=== PATIENT | male | born 1980 | race African-American/Black ===

== ENCOUNTER 2020-10-17 13:19 | Outpatient (REF) | payer OTHER, SELFPAY ==
--- NOTE | ~2020-10-17 | CT_ITS ---
EXAMINATION: CT HEAD WITHOUT CONTRAST CLINICAL INFORMATION: Headaches. COMPARISON: None TECHNIQUE: Contiguous axial imaging was performed from the skull base to vertex without intravenous administration of contrast. This CT examination was performed using dose optimization techniques as appropriate, variously including the following: *Automated exposure control *Adjustment of mA and/or kV according to patient size (this includes techniques or standardized protocols for targeted exams where dose is matched to indication/reason for exam; i.e. extremities or head) *Use of iterative reconstruction technique DLP: 845 mGy-cm FINDINGS: There is no evidence of acute intracranial hemorrhage or territorial infarction. No abnormal mass effect or midline shift is seen. James to white matter differentiation is well preserved. No extra-axial fluid collections are identified. The ventricles are normal in size. There is no abnormal attenuation within the brain parenchyma. The osseous structures and soft tissues are normal. There is pneumosinus dilatation of the the left sphenoid sinus with extensive pneumatization laterally into the left sphenoid wing. There is also rightward bowing of the sphenoid sinus septation. The mastoid air cells and visualized portions of the paranasal sinuses are well aerated. CT/CT head/brain wo con IMPRESSION: No acute intracranial pathology.
== END 2020-10-17 13:20 | disposition home or self-care (01) ==
LOC: HO.CT 13:19
PROVIDERS: PCP Internal Medicine; Visit Provider Psychiatry & Neurology Neurology
DX: R51.9 Headache, unspecified (principal)
CPT/HCPCS: 70450

== ENCOUNTER 2020-10-25 10:07 | Outpatient (REF) | payer OTHER, SELFPAY ==
[2020-10-25 11:18] LABS: MANUAL DIFF FLAG NO
[2020-10-25 11:23] LABS: Basophils Percent Auto 1.1 % (0-2); Eosinophils Percent Auto 1.1 % (0-4); Hematocrit 48.3 % (42-52); Hemoglobin 15.2 g/dl (14.0-18.0); Imm Gran Abs Auto 0.01 X10*3/uL (0.00-0.03); Imm Gran Pct Auto 0.3 % (0.0-0.4); Lymphocytes Absolute Auto 1.8 X10*3/uL (1.2-4.9); Lymphocytes Percent Auto 47.9 % (20-40); Mean Corpuscular HGB Conc 31.5 g/dl (31.0-36.0); Mean Corpuscular Volume 85.9 fL (80-98); Monocytes Absolute Auto 0.4 X10*3/uL (0.1-1.2); Monocytes Percent Auto 10.4 % (2-11); Neutrophils Absolute Auto 1.4 X10*3/uL (2.0-8.3); Neutrophils Percent Auto 39.2 % (45-73); Platelet Count 287 X10*3/uL (160-400); Red Blood Count 5.62 X10*6/uL (4.60-5.80); Red Cell Distribution Width 13.6 % (11.0-16.0); White Blood Count 3.7 X10*3/uL (4.8-10.8)
[2020-10-25 11:41] LABS: Alanine Aminotransferase 38 U/L (0-40); Albumin Level 4.6 g/dL (3.5-5.0); Alkaline Phosphatase 70 U/L (39-117); Anion Gap 10 (12-20); Aspartate Amino Transferase 22 U/L (5-37); Bilirubin Total 0.6 mg/dL (0.0-1.0); Blood Urea Nitrogen 20 mg/dL (9-16); Carbon Dioxide 29 mmol/L (22-29); Chloride 105 mmol/L (96-108); Cholesterol 253 mg/dL; Estimated Glomerular Filt Rate > 60; Glucose Random 74 mg/dL (60-115); HDL Cholesterol 66 mg/dL; LDL Cholesterol Calculated 172 mg/dl; Potassium 4.1 mmol/L (3.3-5.1); Sodium 140 mmol/L (135-145); Total Protein 7.8 g/dL (6.5-8.0); Triglycerides 77 mg/dL
[2020-10-25 11:55] LABS: Free T4 (Free Thyroxine) 1.08 ng/dL (0.71-1.85); Thyroid Stimulating Hormone 1.98 uIU/mL (0.32-4.0)
[2020-10-25 12:14] LABS: Folate 5.8 ng/mL (> or = 4.0); Vitamin B12 677 pg/mL (200-900)
[2020-10-25 12:20] LABS: Erythrocyte Sedimentation Rate 2 MM/HR (0-15)
== END 2020-10-25 10:08 | disposition home or self-care (01) ==
LOC: HO.HMGCLDS 10:07
PROVIDERS: PCP Internal Medicine; Visit Provider Internal Medicine
DX: E78.00 Pure hypercholesterolemia, unspecified (principal); I10 Essential (primary) hypertension
CPT/HCPCS: 36415; 80053; 80061; 82607; 82746; 84439; 84443; 85025; 85652

== ENCOUNTER 2021-09-22 14:46 | Outpatient (REF) | payer OTHER, SELFPAY ==
[2021-09-22 15:11] LABS: MANUAL DIFF FLAG NO
[2021-09-22 15:39] LABS: Basophils Percent Auto 1.3 % (0-2); Eosinophils Absolute Auto 0.1 X10*3/uL (0.0-0.4); Eosinophils Percent Auto 1.6 % (0-4); Hematocrit 49.4 % (42.0-52.0); Hemoglobin 15.9 g/dl (14.0-18.0); Imm Gran Abs Auto 0.01 X10*3/uL (0.00-0.03); Imm Gran Pct Auto 0.3 % (0.0-0.4); Lymphocytes Absolute Auto 1.6 X10*3/uL (1.2-4.9); Lymphocytes Percent Auto 51.9 % (20-40); Mean Corpuscular HGB Conc 32.2 g/dl (31.0-36.0); Mean Corpuscular Hemoglobin 27.8 pg (27.0-33.0); Mean Corpuscular Volume 86.4 fL (80.0-98.0); Mean Platelet Volume 9.8 fL (9.4-12.4); Monocytes Absolute Auto 0.4 X10*3/uL (0.1-1.2); Monocytes Percent Auto 11.9 % (2-11); Platelet Count 303 X10*3/uL (160-400); Red Blood Count 5.72 X10*6/uL (4.60-5.80); Red Cell Distribution Width 13.3 % (11.0-16.0); White Blood Count 3.1 X10*3/uL (4.8-10.8)
[2021-09-22 16:01] LABS: Alanine Aminotransferase 26 U/L (0-40); Albumin Level 4.4 g/dL (3.5-5.0); Alkaline Phosphatase 62 U/L (39-117); Anion Gap 11 (12-20); Aspartate Amino Transferase 17 U/L (5-37); Bilirubin Total 0.7 mg/dL (0.0-1.0); Blood Urea Nitrogen 16 mg/dL (9-16); Calcium 9.8 mg/dL (8.4-10.2); Carbon Dioxide 27 mmol/L (22-29); Chloride 106 mmol/L (96-108); Cholesterol 253 mg/dL; Estimated Glomerular Filt Rate > 60; Glucose Random 88 mg/dL (60-115); HDL Cholesterol 55 mg/dL; LDL Cholesterol Calculated 181 mg/dl; Sodium 140 mmol/L (135-145); Total Protein 7.9 g/dL (6.5-8.0); Triglycerides 88 mg/dL
[2021-09-22 16:23] LABS: Free T4 (Free Thyroxine) 0.99 ng/dL (0.71-1.85); Thyroid Stimulating Hormone 1.54 uIU/mL (0.32-4.0)
[2021-09-22 16:32] LABS: Folate 7.6 ng/mL (> or = 4.0); Vitamin B12 689 pg/mL (200-900)
== END 2021-09-22 14:47 | disposition home or self-care (01) ==
LOC: HO.LAB 14:46
PROVIDERS: PCP Internal Medicine; Visit Provider Internal Medicine
DX: E78.00 Pure hypercholesterolemia, unspecified (principal)
CPT/HCPCS: 36415; 80053; 80061; 82607; 82746; 84439; 84443; 85025

== ENCOUNTER 2022-11-09 16:07 | Outpatient (AMB) | payer OTHER, SELFPAY ==
[2022-11-09 16:37] VITALS: BP 130/86; PULSE 69; O2SAT 98; BMI 34.1
--- NOTE | 2022-11-09 16:37 | A.OFFPC_ITS ---
Vital Signs 11/09/22 16:37 Height 5 ft 10 in Weight 238 lb BMI 34.1 BP 130/86 Blood Pressure Location Lt brachial Position Sitting Pulse 69 Pulse Source Pulse Oximeter Temp Source Skin Pulse Oximetry (%) 98 Oxygen Delivery Method Room Air Intake Visit Reasons: HTN, cholesterol 6 Month Follow Up Drywall Applicator Required: No Allergies peanut Allergy (Unknown, Verified 11/09/22 16:37) Swelling in face and hands shellfish derived Allergy (Verified 11/09/22 16:37) discomfort Tobacco use date assessed: 11/09/22 Dental Screening Dental Screen Date: 11/09/22 HPI HTN, cholesterol 6 Month Follow Up HPI Details 42-year-old obese male with generalized anxiety disorder hypertension and hypercholesterolemia last seen in March 2022 coming in for follow-up last seen having blood work requested. Blood work done October 2022 with normal blood sugar normal renal function normal electrolytes liver function is patient has been seen by the neurologist in March 22 did anxiety disorder treated with paroxetine thyroid no anemia. seen neuro today and was told high BP. PAtient admits to not taking med for few weeks. [place] GERONIMO is better but sleep is interrupted (hence they are asaying increase in paroxetine PFSH Medical History Headaches due to old head injury Hypercholesterolemia Hypertension Surgical History No pertinent past surgical history Family History Mother No problems noted. Father No problems noted. Social History Housing: House Alcohol intake: current Alcohol intake frequency: holidays/special occasions only Patient Tobacco Use Status: Never used Tobacco Years Smoked: 1 cigar once q 6months e-Cigarette/Vaping Use: Never Used Second Hand Smoke Exposure: No service: No Current occupational status: other (self-employed) Cognitive needs: No Hearing needs: No Vision needs: Yes (glasses) Questionnaire Thrive Questionnaire Date Thrive assessed: 03/16/22 AUDIT C Alcohol Use Questionnaire (AUDIT-C) 1. How often do you have a drink containing alcohol?: Never 3. How often do you have six or more drinks on one occasion?: Never Total Score: 0 ELIAS-7 AMB Questionnaire ELIAS-7 Date ELIAS - 7 assessed: 09/22/21 Source: Developed by Drs. Bigg Hodge, Any Frias, Clark Harden and colleagues, with an educational evelyn from [employer]. Physical exam (Primary Care) Vital Signs: Last Vital Signs Pulse 69 11/09/22 16:37 BP 130/86 11/09/22 16:37 Pulse Ox 98 11/09/22 16:37 Oxygen Delivery Method Room Air 11/09/22 16:37 BMI result Body Mass Index 34.1 Tobacco/Smoking Status: Tobacco use Status Tobacco use date assessed 11/09/22 11/09/22 16:43 Patient Tobacco Use Status Never used Tobacco 11/09/22 16:43 e-Cigarette/Vaping Use Never Used 11/09/22 16:43 Thrive Assessment: Date of Thrive Assessment Date Thrive assessed 03/16/22 11/09/22 16:43 Const General: alert; No acute distress Eyes Conjunctivae: conjunctivae normal Resp Auscultation: clear to auscultation bilaterally Cardio Rate: regular rate Rhythm: regular rhythm GI Inspection: Yes normal to inspection Extrem General: Yes normal to inspection and No edema Assessment and Plan Assessment & Plan (1) Obesity (BMI 30.0-34.9): Code(s): E66.9 - Obesity, unspecified Plan: Diet and exercise (2) Generalized anxiety disorder: Comment: decline counselling Code(s): F41.1 - Generalized anxiety disorder Plan: Continue with present medication (3) Hypercholesterolemia: Code(s): E78.00 - Pure hypercholesterolemia, unspecified Plan: Avoid fried foods, chicken skin, eggs, butter margarine, pastries and meat. Be it pork or beef they have a lot of cholesterol LDL goal of less than 130 and triglyceride of less than 150 (4) Hypertension: Code(s): I10 - Essential (primary) hypertension Qualifiers: Hypertension type: essential hypertension Qualified Code(s): I10 - Essential (primary) hypertension Plan: Continue with blood pressure medication. Decrease salt intake and exercise (5) Tension headache: Code(s): G44.209 - Tension-type headache, unspecified, not intractable Plan: Patient has met with neurology (6) Thigh pain: Code(s): M79.659 - Pain in unspecified thigh (7) Upper back pain: Code(s): M54.9 - Dorsalgia, unspecified Orders: Orders Lipid Panel 3 Months E78.00 - Pure hypercholesterolemia, unspecified Comprehensive Met. Panel 3 Months I10 - Essential (primary) hypertension PT Evaluation and Treatment Today M54.9 - Dorsalgia, unspecified, M79.659 - Pain in unspecified thigh Medications: New paroxetine HCl (Paxil) 20 mg PO DAILY 90 tabs 1RF F41.1 - Generalized anxiety disorder Refilled lisinopril-hydrochlorothiazide 10-12.5 mg 1 tab PO DAILY 90 tabs 1RF I10 - Essential (primary) hypertension Coding Level of Care Code Est Pt Level 4 (54312) Diagnoses Obesity (BMI 30.0-34.9) E66.9 Generalized anxiety disorder F41.1 Hypercholesterolemia E78.00 Hypertension I10 Hypertension type: essential hypertension Tension headache G44.209 Thigh pain M79.659 Upper back pain M54.9
== END 2022-11-09 17:58 | disposition home or self-care (01) ==
PROVIDERS: PCP Internal Medicine; Visit Provider Internal Medicine
DX: I10 Essential (primary) hypertension (principal); Z68.34 Body mass index [BMI] 34.0-34.9, adult; E66.9 Obesity, unspecified; G44.209 Tension-type headache, unspecified, not intractable; E78.00 Pure hypercholesterolemia, unspecified; F41.1 Generalized anxiety disorder; M79.659 Pain in unspecified thigh; M54.9 Dorsalgia, unspecified
CPT/HCPCS: 99214

== ENCOUNTER 2023-02-15 16:25 | Outpatient (AMB) | payer OTHER, SELFPAY ==
[2023-02-15 16:33] VITALS: BP 138/96; PULSE 74; TEMP 37; O2SAT 97; BMI 33.1
--- NOTE | 2023-02-15 16:33 | A.OFFPC_ITS ---
Vital Signs 02/15/23 16:33 02/15/23 17:14 Height 5 ft 10 in Weight 104.786 kg BMI 33.1 BP 138/96 H 140/90 H Blood Pressure Location Lt brachial Lt brachial Position Sitting Sitting Pulse 74 Pulse Source Pulse Oximeter Temp 98.6 F Temp Source Skin Pulse Oximetry (%) 97 Oxygen Delivery Method Room Air Intake Visit Reasons: HTN, cholesterol Band Tumbler Required: No Allergies peanut Allergy (Unknown, Verified 02/15/23 16:33) Swelling in face and hands shellfish derived Allergy (Verified 02/15/23 16:33) discomfort Medication List - Last Reconciled 02/15/23 by Ludmila Louis MD acetaminophen (Tylenol Extra Strength) 1,000 mg PO BID PRN blood pressure monitor (Blood Pressure Kit) As directed paroxetine HCl (Paxil) 20 mg PO DAILY Tobacco use date assessed: 02/15/23 Dental Screening Dental Screen Date: 02/15/23 Did you have a dental visit in the last 12 months?: No Did you have a dental problem in the last 6 months where you did not have access to dental care?: No Was dental information given to patient?: Patient has dentist HPI HTN, cholesterol HPI Details 42-year-old obese male with hypertension , hypercholesterolemia and generalized anxiety disorder last seen in October 2022 patient is here for follow- up. Patient had complaints of pains on bilateral thighs and sent for physical therapy. Patient did have blood work done October 2022 showing normal glucose normal renal function normal thyroid normal liver function test normal blood count. has not gone for PT-PAtient's mom dicssusedc about patient changing was in [place] before but mom noticed a change in her demeanor of slow thinking , being by himself. Had a long discussion with the patient because patient has a slow processing asking me multiple questions on getting fasting blood work as well as multiple questions on what blood work is being done. Family is concerned about the thoughts [facility] Medical History Headaches due to old head injury Hypercholesterolemia Hypertension Surgical History No pertinent past surgical history Family History Mother No problems noted. Father No problems noted. Social History Housing: House Alcohol intake: current Alcohol intake frequency: holidays/special occasions only Patient Tobacco Use Status: Never used Tobacco Years Smoked: 1 cigar once q 6months e-Cigarette/Vaping Use: Never Used Second Hand Smoke Exposure: No service: No Current occupational status: other (self-employed) Cognitive needs: No Hearing needs: No Vision needs: Yes (glasses) Questionnaire Thrive Questionnaire Date Thrive assessed: 03/16/22 AUDIT C Alcohol Use Questionnaire (AUDIT-C) 1. How often do you have a drink containing alcohol?: Never 3. How often do you have six or more drinks on one occasion?: Never Total Score: 0 ELIAS-7 AMB Questionnaire ELIAS-7 Date ELIAS - 7 assessed: 02/15/23 Feeling nervous, anxious, or on edge: 0 = Not at all Not being able to stop or control worryin = Not at all Worrying too much about different things: 0 = Not at all Trouble relaxin = Not at all Being so restless that it is hard to sit still: 0 = Not at all Becoming easily annoyed or irritable: 0 = Not at all Feeling afraid as if something awful might happen: 0 = Not at all Total ELIAS-7 score (0-4 normal; 5-9 mild; 10-14 moderate; 15-21 severe): 0 Source: Developed by Drs. Bigg Hodge, Any Frias, Clark Harden and colleagues, with an educational evelyn from [employer]. Physical exam (Primary Care) Vital Signs: Last Vital Signs Temp 98.6 F 02/15/23 16:33 Pulse 74 02/15/23 16:33 BP 140/90 H 02/15/23 17:14 Pulse Ox 97 02/15/23 16:33 Oxygen Delivery Method Room Air 02/15/23 16:33 BMI result Body Mass Index 33.1 Tobacco/Smoking Status: Tobacco use Status Tobacco use date assessed 02/15/23 02/15/23 16:42 Patient Tobacco Use Status Never used Tobacco 02/15/23 16:42 e-Cigarette/Vaping Use Never Used 02/15/23 16:42 Thrive Assessment: Date of Thrive Assessment Date Thrive assessed 03/16/22 02/15/23 16:42 Const General: alert; No acute distress Eyes Conjunctivae: conjunctivae normal Resp Auscultation: clear to auscultation bilaterally Cardio Rate: regular rate Rhythm: regular rhythm GI Inspection: Yes normal to inspection Extrem General: Yes normal to inspection and No edema Office Procedures Flu Questionnaire Does the patient have a severe egg allergy?: No Does the patient have severe life threatening allergies?: No Does the patient have a fever or illness today?: No Has the patient ever had Guillain-[place] Syndrome?: No Has the patient ever had any past reaction to a flu shot?: No Immunizations flu vacc [id number] 6mos up(PF) 60 mcg(15 mcgx4)/0.5 mL IM syringe Performing Provider: Ludmila Louis MD Performing Location: [facility] Administered by: JASMEET Posey on 02/15/23 18:04 Dose Route Admin Location Dispensed Lot Number Expiration Date NDC Crusher Setter 0.5 mL IM Left Deltoid 0.5 mL [id number] 10/31/23 87604-971-27 [employer] VIS Given Date VIS Provided VIS Publication Date 02/15/23 Single Vaccine 20 Eligibility Eligibility Date Funding Source Not [facility] Eligible 02/15/23 Private Assessment and Plan Assessment & Plan (1) Obesity (BMI 30.0-34.9): Code(s): E66.9 - Obesity, unspecified Plan: Diet and exercise (2) Hypertension: Code(s): I10 - Essential (primary) hypertension Qualifiers: Hypertension type: essential hypertension Qualified Code(s): I10 - Essential (primary) hypertension Plan: Continue with blood pressure medication. Decrease salt intake and exercise continue with lisinopril hydrochlorothiazide 10/12.5 mg once a day (3) Hypercholesterolemia: Code(s): E78.00 - Pure hypercholesterolemia, unspecified Plan: Avoid fried foods, chicken skin, eggs, butter margarine, pastries and meat. Be it pork or beef they have a lot of cholesterol LDL goal of less than 130 and triglyceride of less than 150. Last blood work was 2021 (4) Bilateral thigh pain: Code(s): M79.651 - Pain in right thigh; M79.652 - Pain in left thigh Plan: Patient was sent for physical therapy (5) Generalized anxiety disorder: Comment: decline counselling Code(s): F41.1 - Generalized anxiety disorder Plan: Continue with medication Orders: Orders C Reactive Protein Today I10 - Essential (primary) hypertension CORNELL Reflex Titer and Pattern Today I10 - Essential (primary) hypertension Erythrocyte Sedimentation Rate Today I10 - Essential (primary) hypertension Influenza [id number] Immunization Today Z23 - Encounter for immunization Referrals Psychiatry Referral F41.1 - Generalized anxiety disorder Coding Level of Care Code Est Pt Level 4 (27367) Diagnoses Obesity (BMI 30.0-34.9) E66.9 Essential hypertension I10 Hypertension type: essential hypertension Hypercholesterolemia E78.00 Bilateral thigh pain M79.651; M79.652 Generalized anxiety disorder F41.1
[2023-02-15 17:14] VITALS: BP 140/90
== END 2023-02-15 17:44 | disposition home or self-care (01) ==
PROVIDERS: PCP Internal Medicine; Visit Provider Internal Medicine
DX: Z23 Encounter for immunization (principal)
CPT/HCPCS: 90471; 90686; 99214